=== PATIENT | female | born 2000 | race Caucasian/White ===

== ENCOUNTER → 2021-04-10 14:12 | Outpatient (CLI) | payer OTHER, SELFPAY ==
[2021-04-10 15:26] LABS: COVID19 -Nasal RAPID Negative (Negative)
== END ==
PROVIDERS: Referring Provider Physician Assistant; Visit Provider Physician Assistant
DX: R51.9 Headache, unspecified (principal); Z20.822 Contact with and (suspected) exposure to COVID-19
CPT/HCPCS: 87635